=== PATIENT | female | born 1970 | race Caucasian/White ===

== ENCOUNTER 2016-05-22 13:41 | Emergency (ER) | payer OTHER ==
--- NOTE | 2016-05-22 14:18 | ED ---
Back Pain HPI - General Chief Complaint: Back Pain/Injury Stated Complaint: back pain/headache/unable to urinate Time Seen by Provider: 05/22/16 14:11 Source: patient, RN notes reviewed - History of Present Illness Initial Comments: Patient is a 45-year-old female who presents emergency room today with a chief complaint of urinary retention. She does admit that she feels that she needs to urinate but has only been able to void small amounts. She states that symptoms started just this morning. She does admit that she's been experiencing low back pain and headaches over the last several weeks. States she's follow-up the family doctor did have an MRI which did show some spots on membranes. She states it also showed degenerative disc disease. She states she 's had increased pain in her lower back. She states that last night radiating to the hips bilaterally. His feeling no radiation today. Denies any saddle anesthesia. Denies any other complaints currently at this time. Patient denies any recent fever, chills, shortness of breath, chest pain, abdominal pain, nausea or vomiting, dysuria or hematuria, constipation or diarrhea, headaches or visual changes, or any other complaints. - Related Data Home Medications Medication Instructions Recorded Confirmed Omeprazole [PriLOSEC] 20 mg PO AC-BRKFST PRN 05/19/15 08/25/15 Acetaminophen/Pamabrom [Midol 1 tab PO DAILY PRN 05/22/16 05/22/16 Caplet] Propranolol [Inderal] 40 mg PO BID 05/22/16 05/22/16 Previous Rx's Medication Instructions Recorded traMADol HCl [Ultram] 1 - 2 tab PO Q6H PRN #20 tab 05/22/16 Allergies Allergy/AdvReac Type Severity Reaction Status Date / Time Iodinated Contrast Media - Allergy Anaphylaxis Verified 05/22/16 14:48 Oral and [Iodinated Contrast Media - IV Dye] venom-honey bee Allergy Anaphylaxis Verified 05/22/16 14:48 [bee venom (honey bee)] seafood Allergy Anaphylaxis Uncoded 08/20/15 14:25 Review of Systems ROS Statement: Those systems with pertinent positive or pertinent negative responses have been documented in the HPI. ROS Other: All systems not noted in ROS Statement are negative. Past Medical History Past Medical History: Asthma, Cancer Additional Past Medical History / Comment(s): CERVICAL CANCER, KIDNEY STONES, Lesions on brain History of Any Multi-Drug Resistant Organisms: None Reported Past Surgical History: Tubal Ligation Additional Past Surgical History / Comment(s): UTERINE ABLATION, D&C, facial reconstruction, CYSTOSCOPY lithotripsy 2016 Past Anesthesia/Blood Transfusion Reactions: No Reported Reaction Past Psychological History: Anxiety, Bipolar, Depression Smoking Status: Current every day smoker Past Alcohol Use History: None Reported Additional Past Alcohol Use History / Comment(s): STARTED SMOKING AT AGE 15, SMOKES 1PPD Past Drug Use History: Marijuana - Past Family History Mother Family Medical History: Cancer General Exam - General Exam Comments Initial Comments: General: The patient is awake and alert, in no distress, and does not appear acutely ill. Eye: Pupils are equal, round and reactive to light, extra-ocular movements are intact. No nystagmus. There is normal conjunctiva bilaterally. No signs of icterus. Ears, nose, mouth and throat: There are moist mucous membranes and no oral lesions. Neck: The neck is supple, there is no tenderness or JVD. Cardiovascular: There is a regular rate and rhythm. No murmur, rub or gallop is appreciated. Respiratory: Lungs are clear to auscultation, respirations are non-labored, breath sounds are equal. No wheezes, stridor, rales, or rhonchi. Gastrointestinal: Soft, non-distended, non-tender abdomen without masses or organomegaly noted. There is no rebound or guarding present. No CVA tenderness. Bowel sounds are unremarkable. Musculoskeletal: Tenderness to the lumbar spine from L1 to L4. Increased paravertebral tenderness both on left right sides. Strength 5/5. Sensation intact. Pulses equal bilaterally 2+. Neurological: A&O x 3. CN II-XII intact, There are no obvious motor or sensory deficits. Coordination appears grossly intact. Speech is normal. Skin: Skin is warm and dry and no rashes or lesions are noted. Psychiatric: Cooperative, appropriate mood & affect, normal judgment. Course Vital Signs 05/22/16 14:03 Temperature 97.2 F L Pulse Rate 92 Respiratory 18 Rate Blood Pressure 139/87 O2 Sat by Pulse 98 Oximetry Medical Decision Making - Medical Decision Making Case discussed in detail with attending physician Dr. Chiang. Patient's x-ray reviewed shows no evidence of obstruction. Results were discussed with the patient. Patient has normal rectal tone here in the emergency room. Does admit to pain located to the lower back. Bladder scan showed 70 mL. Was discussed with patient about increasing oral fluids. Advised patient follow-up the family doctor tomorrow. discuss possibilities of constipation. Advised patient to try a laxative. Advised patient to return to emergency room if unable to urinate next 24 hours. Advised to return if any other symptoms increase or worsen or for any other concerns. Advised patient that narcotics contraindicated at this time due to possible cause of increased constipation. Disposition Clinical Impression: Acute back pain Disposition: HOME SELF-CARE Condition: Good Instructions: Acute Low Back Pain (ED) Additional Instructions: These falls family doctor tomorrow as discussed. Please use medication as prescribed. Please return to emergency room if unable to void for the next 24 hours. Please return if any other symptoms increase or worsen or for any other concerns. Prescriptions: traMADol HCl [Ultram] 1 - 2 tab PO Q6H PRN #20 tab PRN Reason: Pain Time of Disposition: 15:11
--- NOTE | 2016-05-22 14:55 | XR ---
EXAMINATION TYPE: XR KUB DATE OF EXAM: 05/22/2016 2:46 PM COMPARISON: 05/29/2015 HISTORY: Abdominal pain TECHNIQUE: 2 views FINDINGS: Bowel gas pattern is normal. There is no sign of intestinal obstruction or pneumoperitoneum . Fecal pattern is normal. There is no sign of a mass. Lung bases are clear. There are no pathologic calcifications over the kidneys. IMPRESSION: Nonacute abdomen. No change.
[2016-05-22] MEDS ORDERED: KETOROLAC 60 MG/2 ML VIAL IM STA (15:10)
[2016-05-22 15:32] VITALS: BP 134/79; PULSE 16; RESP 94; TEMP 97.9
== END 2016-05-22 15:32 | disposition home or self-care (01) ==
LOC: EC 13:41
DX: M54.5 Low back pain (principal); R33.9 Retention of urine, unspecified; Z79.899 Other long term (current) drug therapy; Z91.030 Bee allergy status; Z91.041 Radiographic dye allergy status; Z91.013 Allergy to seafood; Z87.442 Personal history of urinary calculi; F17.200 Nicotine dependence, unspecified, uncomplicated
CPT/HCPCS: 96372; 99283; 51798; 74000; J1885

== ENCOUNTER → 2017-11-24 | Outpatient (CLI) | payer OTHER ==
--- NOTE | 2017-11-24 16:11 | MR ---
EXAMINATION TYPE: MR brain wo con DATE OF EXAM: 11/24/2017 COMPARISON: 05/06/2016 HISTORY: Headaches TECHNIQUE: Multiplanar, multisequence images of the brain and brainstem is performed without IV contrast. FINDINGS: Diffusion weighted images demonstrate no evidence of a recent infarct or other diffusion ab normality. There is no extra-axial fluid collection.. Few punctate foci of T2/FLAIR hyperintensity a re seen within the subcortical and periventricular white matter. The largest measures 3 mm within the right frontal subcortical region. There are approximately 5 foci. No surrounding vasogenic edema is seen. The ventricular system and cisternal spaces are normal in size and appearance. The brain volum e is age appropriate. Midline structures demonstrate normal morphology. The craniocervical junction appears within normal limits. The dural venous sinuses appear patent. The visualized sinuses are clear and the globes are intact. IMPRESSION: Few new subcentimeter foci of white matter change predominating within the frontal lobes in a subcortical distribution. These are most typical of sequela of microangiopathy or headaches and do not appear an atypical distribution of demyelinating disease although this remains in the differen tial but much less likely.
== END | disposition home or self-care (01) ==
LOC: RADMRIMAIN 11:09
PROVIDERS: ATTEND Psychiatry & Neurology Neurology
DX: R90.82 White matter disease, unspecified (principal); G43.019 Migraine without aura, intractable, without status migrainosus
CPT/HCPCS: 70551

== ENCOUNTER → 2017-12-12 | Outpatient (CLI) | payer OTHER ==
--- NOTE | 2017-12-12 15:35 | US ---
EXAMINATION TYPE: US transvaginal DATE OF EXAM: 12/12/2017 COMPARISON: US CLINICAL HISTORY: N92.1 Metrorrhagia. Metrorrhagia, pt states on/off vaginal bleeding x 3 months, LMP : 4 years ago, history of ablation TECHNIQUE: Transvaginal (TV). Date of LMP: 4 yrs ago FINDINGS: Uterus: Anteverted measuring 7.1 x 4.5 x 5.3 cm there is mild myometrial heterogeneity and cervical nabothian cysts noted. Endometrial Stripe: Not well delineated but estimated at 5 mm. tiny 3 mm fundal calcification could r eflect prior instrumentation. Right Ovary: 3.4 x 2.2 x 2.4 cm for a volume of 9.6 mL. Follicular change is present with a 1.9 cm d ominant follicle or functional cyst. Left Ovary: 2.9 x 2.1 x 3.3 cm for volume of 10.3 mL. Follicular change is present. No evidence of adnexal abnormality or cul-de-sac free fluid. IMPRESSION: 1. Myometrial heterogeneity could reflect diffuse small fibroid change or adenomyosis. 2. Endometrial stripe not well delineated but estimated at 5 mm. 3. Normal follicular change in both ovaries. No pelvic free fluid.
== END | disposition home or self-care (01) ==
LOC: RADUSWWP 12:04
PROVIDERS: ATTEND Obstetrics & Gynecology
DX: N92.1 Excessive and frequent menstruation with irregular cycle (principal)
CPT/HCPCS: 76830

== ENCOUNTER → 2018-01-03 | Outpatient (CLI) | payer OTHER ==
--- NOTE | 2018-01-05 08:32 | MM ---
Reason for exam: screening (asymptomatic). Last mammogram was performed 1 year and 8 months ago. History: Patient had first child at age 37. Family history of breast cancer in mother, breast cancer in maternal grandmother, breast cancer in maternal aunt, and breast cancer in paternal aunt. Physical Findings: A clinical breast exam by your physician is recommended on an annual basis and results should be correlated with mammographic findings. MG Screening Mammo w CAD Bilateral CC and MLO view(s) were taken. Prior study comparison: May 06, 2016, bilateral MG screening mammo w CAD. October 29, 2008, mammogram, performed at [facility]. There are scattered fibroglandular densities. No significant changes when compared with prior studies. ASSESSMENT: Benign, BI-RAD 2 RECOMMENDATION: Routine screening mammogram of both breasts in 1 year.
== END | disposition home or self-care (01) ==
LOC: RADMAMWWP 08:57
PROVIDERS: ATTEND Family Medicine
DX: Z12.31 Encounter for screening mammogram for malignant neoplasm of breast (principal)
CPT/HCPCS: 77067

== ENCOUNTER → 2018-02-02 | Outpatient (CLI) | payer OTHER ==
--- NOTE | 2018-02-02 09:10 | CT ---
EXAMINATION TYPE: CT abdomen pelvis w con DATE OF EXAM: 02/02/2018 COMPARISON: None HISTORY: Leukocystosis and abdominal pain CT DLP: 1091.40 mGycm CONTRAST: CT scan of the abdomen and pelvis is performed with Oral Contrast and with IV Contrast, patient injec lemuel with 100 ml mL of Isovue 300. FINDINGS: LUNG BASES-: No visible nodule. No infiltrate. LIVER/GB: No calcified gallstones. There is mild hepatic steatosis. No space occupying hepatic les ion. Biliary tree is of normal caliber. PANCREAS: No inflammation. No distinct mass. SPLEEN: No splenic enlargement. No lesion seen. ADRENALS: No nodule. No thickening. KIDNEYS/BLADDER: No hydronephrosis. No nephrolithiasis. No distinct renal mass. Urinary bladder g rossly unremarkable. BOWEL: Normal appendix. Normal bowel caliber. No inflammation. GENITAL ORGANS: No gross abnormality. LYMPH NODES: No greater than 1cm abdominal or pelvic lymph nodes are appreciated. AORTA: No significant abnormality. OSSEOUS STRUCTURES: No significant abnormality is seen. OTHER: No significant additional abnormality is seen. IMPRESSION: 1. Fatty liver. Otherwise unremarkable study.
--- NOTE | 2018-02-02 12:54 | XR ---
EXAMINATION TYPE: XR chest 2V DATE OF EXAM: 02/02/2018 COMPARISON: Prior dated 02/02/2015 HISTORY: Leukocytosis, abdomen pain, cough TECHNIQUE: Frontal and lateral views of the chest are obtained. FINDINGS: There is bronchial wall thickening. There is no focal air space opacity, pleural effusion, or pneumothorax seen. The cardiac silhouette size is within normal limits. The osseous structures are intact. IMPRESSION: Correlate for bronchitis, reactive airways disease, follow-up as indicated.
== END ==
LOC: RADCTMAIN 07:19
PROVIDERS: ATTEND Internal Medicine Hematology & Oncology
DX: K76.0 Fatty (change of) liver, not elsewhere classified (principal); D72.829 Elevated white blood cell count, unspecified; D75.1 Secondary polycythemia; Z91.048 Other nonmedicinal substance allergy status
CPT/HCPCS: 71046; 74177; Q9967

== ENCOUNTER → 2019-03-11 | Outpatient (CLI) | payer OTHER ==
[2019-03-11 10:10] LABS: Basophils # (A) 0.1 k/uL (0-0.2); Basophils % (A) 1 %; Eosinophils # (A) 0.2 k/uL (0-0.7); Eosinophils % (A) 2 %; HCT 48.4 % (34.0-46.0); Lymphocytes # (A) 2.3 k/uL (1.0-4.8); Lymphocytes % (A) 25 %; MCHC 33.1 g/dL (31.0-37.0); MCV 90.6 fL (80.0-100.0); Mean Platelet Volume 7.4; Monocytes # (A) 0.4 k/uL (0-1.0); Monocytes % (A) 4 %; Neutrophils # (A) 6.2 k/uL (1.3-7.7); Neutrophils % (A) 67 %; Platelet Count 226 k/uL (150-450); RBC 5.35 m/uL (3.80-5.40); WBC 9.1 k/uL (3.8-10.6)
== END | disposition home or self-care (01) ==
LOC: LABWHC1 09:24
PROVIDERS: ATTEND Psychiatry & Neurology Neurology
DX: G43.019 Migraine without aura, intractable, without status migrainosus (principal)
CPT/HCPCS: 36415; 80164; 84450; 84460; 85025

== ENCOUNTER 2019-12-13 07:27 | Day surgery (SDC) | payer OTHER ==
[2019-12-10 13:54] VITALS: BMI 34.9
[~2019-12-13 07:27] MED LIST: LACTATED RINGERS 1,000 ML IV SCH; LIDOCAINE 1% (10MG/ML) FOR IV START INTRADERMA PRN
[2019-12-13 07:48] VITALS: TEMP 97.5
[2019-12-13] MEDS ORDERED: LACTATED RINGERS 1,000 ML IV ONE (07:48)
[2019-12-13] MEDS ORDERED: PROPOFOL 10 MG/ML 20 ML VIAL IV ONE (08:02)
[2019-12-13] MEDS ORDERED: LIDOCAINE 1% INJ 10MG/ML (20 ML MDV) ONE (08:02)
--- NOTE | 2019-12-13 08:12 | P.PCN ---
Date of Procedure: 12/13/19 Procedure(s) Performed: BRIEF HISTORY: Patient is a 49-year-old, pleasant, white female scheduled for an upper endoscopy as a part of evaluation of long-standing history of several years duration. Presently on omeprazole 20 mg twice daily and Pepcid at bedtime the family. She is scheduled for an upper endoscopy to rule out complicated reflux disease. PROCEDURE PERFORMED: Esophagogastroduodenoscopy with biopsy. PREOPERATIVE DIAGNOSIS: Long-standing history of GERD. IV sedation per anesthesia. PROCEDURE: After informed consent was obtained, the patient was brought into the endoscopy unit. IV sedation was administered by Anesthesia under continuous monitoring. Initially the Olympus GIF-140 video endoscope was inserted into the mouth. Esophagus intubated without any difficulty. It was gradually advanced into the stomach and duodenum and carefully examined. The bulb and the second part of the duodenum appeared normal. The scope at this time was withdrawn to the stomach, adequately insufflated with air, and upon careful examination, mucosa of the antrum, had diffuse erythema consistent with gastritis and biopsies were done from this area. The body, cardia and the fundus appeared normal. The scope was then withdrawn into the esophagus. The GE junction was located at 39 cm from the incisors. The esophagus appeared normal. There were no erosions or ulcerations seen , biopsies were done from the distal esophagus and the patient tolerated the procedure well. IMPRESSION: 1. Normal-appearing esophagus with no evidence of esophagitis or Diamond's esophagus. 2. Mild antral gastritis. RECOMMENDATIONS: The findings of this examination were discussed with the patient as well as a family. She was advised to follow with the biopsy results. She'll continue with omeprazole 20 mg daily and Pepcid at bedtime and follow antireflux.
[2019-12-13 08:31] VITALS: BP 112/70; PULSE 58; RESP 16
== END 2019-12-13 08:44 | disposition home or self-care (01) ==
LOC: ORWHC2ENDO 07:27
PROVIDERS: ATTEND Internal Medicine Gastroenterology
DX: K21.0 Gastro-esophageal reflux disease with esophagitis (principal); K29.50 Unspecified chronic gastritis without bleeding; K08.109 Complete loss of teeth, unspecified cause, unspecified class; I25.10 Atherosclerotic heart disease of native coronary artery without angina pectoris; J45.909 Unspecified asthma, uncomplicated; F17.200 Nicotine dependence, unspecified, uncomplicated; F31.9 Bipolar disorder, unspecified; F41.9 Anxiety disorder, unspecified; G93.9 Disorder of brain, unspecified; K58.9 Irritable bowel syndrome, unspecified; Z79.899 Other long term (current) drug therapy; Z79.82 Long term (current) use of aspirin; Z91.048 Other nonmedicinal substance allergy status; Z91.013 Allergy to seafood; Z87.442 Personal history of urinary calculi; Z85.41 Personal history of malignant neoplasm of cervix uteri; Z90.710 Acquired absence of both cervix and uterus
CPT/HCPCS: 88305; 43239; J2001; J2704

== ENCOUNTER → 2021-02-15 | Outpatient (CLI) | payer OTHER ==
[2021-02-15 11:41] VITALS: BP 103/73; PULSE 76; RESP 18; TEMP 96.8
--- NOTE | 2021-02-15 13:10 | P.PAINCN ---
History of Present Illness - Reason for Consult Consult date: 02/15/21 Lumbar back pain - Chief Complaint Lumbar back pain - History of Present Illness Mrs. Vick is a 50-year-old pleasant female came to the [facility] pain clinic for initial evaluation for her lumbar back pain. Patient has ongoing pain for many years. Lately her pain is getting worse. She had lumbar spine MRI done on 05/06/2016 showed degenerative disc disease at L4-L5, and L5-S1 l evels, , and diffuse facet arthropathy. Patient describes pain is aching, throbbing, constant type of pain. Pain is radiating not radiating to her lower extremities. Patient rated pain levels are 8 out of 10 in severity. Patient doesn't like to take any medications. Activities making pain worse. Medications, resting helping in relieving patient's pain. Patient pain some days better than others. Overall activities decreased secondary to pain. Because of the pain sometimes patient is feeling lack of sleep, interest, and energy. Denied any bowel or bladder problems at this time. Patient is not using any for walking support. Patient denies any suicidal or homicidal ideations intent or plan. Patient denies any auditory or visual hallucinations. Patient denied any red flag symptoms related to pain. Review of Systems All systems: negative Constitutional: Denies chills, Denies fever Eyes: denies blurred vision, denies pain Ears, nose, mouth and throat: Denies headache, Denies sore throat Cardiovascular: Denies chest pain, Denies shortness of breath Respiratory: Denies cough Gastrointestinal: Denies abdominal pain, Denies diarrhea, Denies nausea, Denies vomiting Genitourinary: Denies dysuria, Denies hematuria Musculoskeletal: Reports myalgias Integumentary: Denies pruritus, Denies rash Neurological: Denies numbness, Denies weakness Psychiatric: Denies anxiety, Denies depression Endocrine: Denies fatigue, Denies weight change Past Medical History Past Medical History: Asthma, Cancer, GERD/Reflux, Myocardial Infarction (CT) Additional Past Medical History / Comment(s): CERVICAL CANCER, KIDNEY STONES, Lesions on brain,. spastic bowel syndrome. neck&back pain migraines. arthritis Last Myocardial Infarction Date:: 02/2017 History of Any Multi-Drug Resistant Organisms: None Reported Past Surgical History: Heart Catheterization, Hysterectomy, Tubal Ligation, Uterine Ablation Additional Past Surgical History / Comment(s): D&C, facial reconstruction, CYSTOSCOPY lithotripsy 2016 Past Anesthesia/Blood Transfusion Reactions: No Reported Reaction Past Psychological History: Anxiety, Bipolar, Depression Smoking Status: Current every day smoker Past Alcohol Use History: None Reported Additional Past Alcohol Use History / Comment(s): STARTED SMOKING AT AGE 15, SMOKES 6 cig/d attempting to quit Past Drug Use History: Marijuana Additional Drug Use History / Comment(s): edibles - Past Family History Mother Family Medical History: Cancer Medications and Allergies Home Medications Medication Instructions Recorded Confirmed Type Albuterol Inhaler (Mhu) [Ventolin 1 - 2 puff INHALATION RT-Q6H PRN 03/06/17 01/15/21 History Hfa Inhaler] Amitriptyline HCl [Elavil] 50 mg PO HS 03/06/17 01/15/21 History Aspirin 81 mg PO DAILY #303 chew 03/08/17 01/15/21 Rx Atorvastatin [Lipitor] 80 mg PO DAILY #30 tab 03/08/17 01/15/21 Rx Metoprolol Tartrate [Lopressor] 12.5 mg PO BID #60 tab 03/08/17 01/15/21 Rx Nitroglycerin Sl Tabs [Nitrostat] 0.4 mg SUBLINGUAL Q5M PRN #25 tab 03/08/17 01/15/21 Rx Polyethylene Glycol 3350 [Miralax] 17 gm PO DAILY PRN 12/10/19 01/15/21 History Valproic Acid [Depakene] 500 mg PO BID 12/10/19 01/15/21 History amLODIPine [Norvasc] 5 mg PO DAILY 12/10/19 01/15/21 History Loratadine [Claritin] 10 mg PO DAILY 01/15/21 01/15/21 History diphenhydrAMINE [Benadryl] 25 mg PO HS 01/15/21 01/15/21 History methocarbamoL [Robaxin] 500 mg PO Q8H 02/15/21 02/15/21 History Allergies Allergy/AdvReac Type Severity Reaction Status Date / Time Iodinated Contrast Media Allergy Anaphylaxis Verified 01/15/21 13:47 [Iodinated Contrast Media - IV Dye] venom-honey bee Allergy Anaphylaxis Verified 01/15/21 13:47 [bee venom (honey bee)] seafood Allergy Anaphylaxis Uncoded 01/15/21 13:47 Physical Exam Vitals: Vital Signs Temp Pulse Resp BP Pulse Ox 02/15/21 11:37 96.8 F L 76 18 103/73 96 General: Well-developed, well-nourished, no acute distress HEENT: Normocephalic, and atraumatic Neck: Supple, no neck swelling Psychiatric: Appropriate mood, and affect HAND III CUTTER: No noticeable focal neurological deficits Musculoskeletal: Upper extremity: Normal strength, and range of motion. Sensation grossly intact Lower extremity: Normal strength, and decreased range of motion secondary to pain Lumbar spine: Paravertebral tenderness: positive Lumbar facet load test : positive Strait leg raising test: negative Sacroiliac joint tenderness: Positive Thigh thrust test: Positive SI joint compression test: Positive Fabere test: Positive Results Results: MRI of the lumbar spine done on 05/06/2016 showed degenerative disc disease, L4-L5, and L5-S1 Mild, diffuse facet arthropathy Broad-based disc protrusion at L5-S1 without definite neural compression Assessment and Plan Assessment: Lumbar spondylosis without myelopathy Degenerative disc disease at all 4 L5, and L5-S1 Broad-based disc protrusion at L5-S1 Myofascial pain syndrome Plan: #1 psychological risk tools were reviewed. Diagnoses, prognosis, and multiple treatment options including but not limited to physical therapy, interventional therapy, adjunct medication therapy, complementary alternative medicine options, narcotic medication, and surgical options were discussed with the patient. And all questions were answered to the patient's satisfaction. #2 treatment plan agreement : Patient was thoroughly discussed regarding the treatment options, alternatives, and importance of exercises as tolerated. Patient clearly understood. #3 Patient was counseled on importance of regular exercise. Including gris chi, aerobic exercises as tolerated. Which helps for chronic pain, and overall well- being. Patient also counseled regarding importance of weight control role in chronic pain, and overall other health issues. By altering diet habits, minimizing sugar intake, & processed foods helps in minimizing Inflammation. Patient counseled regarding smoking associated with chronic pain, worsening inflammation, and smoking effects on liver, and medication metabolism. And encouraged to stop smoking. #4 investigations: MAPS- reviewed , urine drug test- not done #5 diagnostic tests: None at this time #6 consultation : None # 7 interventional procedures: Bilateral lumbar L4-L5, and L5-S1 medial branch block #1 . Procedure, complications, alternatives discussed with the patient. #8 medications #1 Robaxin 100 mg by mouth every 12 to every 8 hours as needed for muscle spasms dispense 30 with no refill #2 Tylenol 500 mg by mouth every 8 hours as needed, total dose not more than 2 g per day #3 magnesium oxide 400 mg by mouth daily Medication side effects, complications, long-term consequences discussed with the patient. Patient recommended to contact the pain clinic if noticed any issues with given medications. #9 morphine milligrams equivalents dose ( MME) per day: 0 from the pain clinic. # 10 TENS unit's, and percussion massage device #11 disposition: scheduled to follow up with pain clinic in 4 weeks duration. Time with Patient: Greater than 30 PQRS Measure Charge Sheet Measure #130: Documentation of Current Meds in Medical Chart: Patient's medications documented in chart Measure #226: Tobacco Use: Screen & Cessation Intervention: Pt screened for tobacco use AND intervention given Measure #111: Pneumonia Vaccination: Pneumococcal vaccine NOT administered or previously given Measure #47: Advance Care Plan: Advance care planning discussed & documented, pt chose/unable to give Measure #412: Opioid Treatment Agreement: No documentation of signed opioid helga tment agreement Measure #408: Opioid Therapy Follow-up Evaluation: Patient had NO f/u eval minimum every 3 months during opioid therapy Measure #317: Preventitive Care & Scrn High Bld Press & F/U: Pre-hypertensive or hypertensive BP documented, pt will f/u with PCP Measure #128: Body Mass Index (BMI) Screening & Follow-up: BMI documented ABOVE normal parameters - f/u documented Measure #131: Pain Assessment & Follow-up: Pain positive & plan documented Measure #431: Unhealthy Alcohol Use Preventative Care & Scrn: Patient not identified as an unhealthy alcohol user Mode of Arrival: Ambulatory - Pain Location Lower Back Non-Pharmacological Interventions: Heat, Stretching Neck Pharmacological Interventions: PRN Medication PQRS Narrative: Smoking Status Current every day smoker Blood Pressure 103/73 Pain Intensity [Neck] 10 Pain Intensity [Lower Back] 15 Scale Used Numeric (1 - 10) Hx Alcohol Use (MH) No Home Medications: Ambulatory Orders Albuterol Inhaler (Mhu) [Ventolin Hfa Inhaler] 1 - 2 puff INHALATION RT-Q6H PRN 03/06/17 Amitriptyline HCl [Elavil] 50 mg PO HS 03/06/17 Aspirin 81 mg PO DAILY #303 chew 03/08/17 Atorvastatin [Lipitor] 80 mg PO DAILY #30 tab 03/08/17 Metoprolol Tartrate [Lopressor] 12.5 mg PO BID #60 tab 03/08/17 Nitroglycerin Sl Tabs [Nitrostat] 0.4 mg SUBLINGUAL Q5M PRN #25 tab 03/08/17 Polyethylene Glycol 3350 [Miralax] 17 gm PO DAILY PRN 12/10/19 Valproic Acid [Depakene] 500 mg PO BID 12/10/19 amLODIPine [Norvasc] 5 mg PO DAILY 12/10/19 Loratadine [Claritin] 10 mg PO DAILY 01/15/21 diphenhydrAMINE [Benadryl] 25 mg PO HS 01/15/21 methocarbamoL [Robaxin] 500 mg PO Q8H 02/15/21
== END ==
LOC: PNWHC3 11:04
DX: M47.816 Spondylosis without myelopathy or radiculopathy, lumbar region (principal); M51.36 Other intervertebral disc degeneration, lumbar region; M79.18 Myalgia, other site; M51.27 Other intervertebral disc displacement, lumbosacral region; M51.37 Other intervertebral disc degeneration, lumbosacral region; J45.909 Unspecified asthma, uncomplicated; I25.2 Old myocardial infarction; F41.9 Anxiety disorder, unspecified; F31.9 Bipolar disorder, unspecified; F17.210 Nicotine dependence, cigarettes, uncomplicated; Z79.82 Long term (current) use of aspirin; Z79.51 Long term (current) use of inhaled steroids; Z79.899 Other long term (current) drug therapy; Z91.041 Radiographic dye allergy status; Z91.030 Bee allergy status; Z91.013 Allergy to seafood
CPT/HCPCS: 99211

== ENCOUNTER → 2021-04-26 | Outpatient (CLI) | payer OTHER ==
[2021-04-26 11:14] VITALS: BP 120/78; PULSE 83; RESP 18; TEMP 97.7
--- NOTE | 2021-04-26 11:45 | P.PAINPG ---
Subjective Progress Note Date: 04/26/21 Principal diagnosis: Lumbar back pain Mrs. Vick is a 50-year-old pleasant female came to the [facility] pain clinic for follow-up. Patient has ongoing pain for many years. Her lumbar bilateral L4-L5, and L5-S1 medial branch procedure car denied secondary to insurance documentation for physical therapy . Patient tried physical therapy in the past which was not helpful. As per patient she is doing physical therapy exercises at home along with taking care of her mother which was not helping in controlling her pain. And also as per patient she is not able to go for physical therapy at this time secondary to her home situation. Patient describes pain is aching, throbbing, constant type of pain. Pain is not radiating to bilateral lower extremity. Patient rated pain levels are 7-8 out of 10 in severity. With the help of medications pain levels are 6 out of 10 in severity. Activities making pain worse. Medications, resting, heating pad, exercises to some extent helping in relieving patient's pain. Patient pain some days better than others. Overall activities decreased secondary to pain. Because of the pain sometimes patient is feeling lack of sleep, interest, and energy. Denied any side effects with the medications. Denied any bowel or bladder problems at this time. Patient is not using any walking aids at this time. Patient denies any suicidal or homicidal ideations intent or plan. Patient denies any auditory or visual hallucinations. Patient denied any red flag symptoms related to pain. Objective - Vital Signs Vital signs: Vital Signs Temp 97.7 F 04/26/21 10:59 Pulse 83 04/26/21 10:59 Resp 18 04/26/21 10:59 BP 120/78 04/26/21 10:59 Pulse Ox - Exam General: Well-developed, well-nourished, no acute distress HEENT: Normocephalic, and atraumatic Neck: Supple, no neck swelling Psychiatric: Appropriate mood, and affect LABEL STAMPER: No focal neurological deficits Musculoskeletal: Upper extremity: Normal strength, and range of motion. Sensation grossly intact Lower extremity: Normal strength, and decreased range of motion secondary to pain Lumbar spine: Paravertebral tenderness: positive Lumbar facet load test : positive SLR test: Negative Sacroiliac joint tenderness: Positive Thigh thrust test: Positive SI joint compression test: Positive Fabere test: Positive - Constitutional Constitutional Comment(s): 13 point review of symptoms negative except as mentioned in the history of present illness Assessment and Plan Assessment: Lumbar spondylosis without myelopathy degenerative disc disease at L4-L5, L5-S1 level Broad-based disc protrusion at L5-S1 Myofascial pain syndrome Sacroiliac joint dysfunction Plan: #1 Diagnoses, prognosis, and multiple treatment options including but not limited to physical therapy, interventional therapy, adjunct medication therapy, narcotic medication, and surgical options were discussed with the patient. And all questions were answered to the patient's satisfaction. #2 treatment plan agreement : Patient was thoroughly discussed regarding the treatment options, alternatives, and importance of exercises as tolerated. Patient clearly understood. #3 Patient was counseled on importance of regular exercise. Including gris chi, aerobic exercises as tolerated. Which helps for chronic pain, and overall well- being. Patient also counseled regarding importance of weight control rolling chronic pain, and overall other health issues. By altering diet habits, minimizing sugar intake, and processed foods helps in minimizing Inflammation. Also discussed with the patient regarding intermittent fasting. #4 investigations: MAPS- reviewed #5 diagnostic tests: None #6 consultation : Patient unable to attend physical therapy at this time secondary to her home situation. Patient is actively doing physical therapy exercises at home as tolerated. # 7 interventional procedures: Bilateral lumbar L4-L5, and L5-S1 medial branch block #1 . Procedure, complications, alternatives discussed with the patient. #8 medications #1 Robaxin dose increased from 500 mg to 750 mg by mouth every 12 to every 8 hours when necessary for muscle spasm dispense 90 with no refill #2 Tylenol 500 mg by mouth every 8 hours as needed total dose not more than 2 g per day #3 Naprosyn 500 mg by mouth every 12 hours from her primary care physician Medication side effects, complications, long-term consequences discussed with the patient. Patient recommended to contact the pain clinic if noticed any issues with given medications. #9 morphine milligrams equivalents dose ( MME) per day: 0 from the pain clinic # 10 TENS unit's, and percussion massage device #11 disposition: scheduled to follow up with pain clinic in 4 weeks duration. Time with Patient: Less than 30 PQRS Measure Charge Sheet Measure #130: Documentation of Current Meds in Medical Chart: Patient's medications documented in chart Measure #226: Tobacco Use: Screen & Cessation Intervention: Pt not a tobacco user Measure #111: Pneumonia Vaccination: Pneumococcal vaccine NOT administered or previously given Measure #47: Advance Care Plan: Advance care planning discussed & documented, pt chose/unable to give Measure #412: Opioid Treatment Agreement: No documentation of signed opioid treatment agreement Measure #408: Opioid Therapy Follow-up Evaluation: Patient had NO f/u eval minimum every 3 months during opioid therapy Measure #317: Preventitive Care & Scrn High Bld Press & F/U: Pre-hypertensive or hypertensive BP documented, pt will f/u with PCP Measure #128: Body Mass Index (BMI) Screening & Follow-up: BMI documented ABOVE normal parameters - f/u documented Measure #131: Pain Assessment & Follow-up: Pain positive & plan documented Measure #431: Unhealthy Alcohol Use Preventative Care & Scrn: Patient not identified as an unhealthy alcohol user Mode of Arrival: Ambulatory - Pain Location Lower Back Non-Pharmacological Interventions: Inactivity, Position/Reposition, Relaxation Technique PQRS Narrative: Smoking Status Current every day smoker Blood Pressure 120/78 Pain Intensity [Lower Back] 9 Scale Used Numeric (1 - 10) Hx Alcohol Use (MH) No Home Medications: Ambulatory Orders Albuterol Inhaler (Mhu) [Ventolin Hfa Inhaler] 1 - 2 puff INHALATION RT-Q6H PRN 03/06/17 Aspirin 81 mg PO DAILY #303 chew 03/08/17 Atorvastatin [Lipitor] 80 mg PO DAILY #30 tab 03/08/17 Nitroglycerin Sl Tabs [Nitrostat] 0.4 mg SUBLINGUAL Q5M PRN #25 tab 03/08/17 Polyethylene Glycol 3350 [Miralax] 17 gm PO DAILY 12/10/19 Valproic Acid [Depakene] 500 mg PO BID 12/10/19 amLODIPine [Norvasc] 5 mg PO DAILY 12/10/19 Loratadine [Claritin] 10 mg PO DAILY 01/15/21 diphenhydrAMINE [Benadryl] 25 mg PO HS 01/15/21 Naproxen [Naprosyn] 500 mg PO Q12HR 03/18/21 Amitriptyline HCl 50 mg PO HS 04/21/21 Metoprolol Tartrate [Lopressor] 12.5 mg PO BID 04/21/21 Controlled Substance Measures - Controlled Substance Measures Is patient prescribed a controlled substance at discharge?: No
== END ==
LOC: PNWHC3 10:19
DX: M47.816 Spondylosis without myelopathy or radiculopathy, lumbar region (principal); M51.37 Other intervertebral disc degeneration, lumbosacral region; M51.27 Other intervertebral disc displacement, lumbosacral region; M79.18 Myalgia, other site; M53.3 Sacrococcygeal disorders, not elsewhere classified; F17.200 Nicotine dependence, unspecified, uncomplicated; Z91.041 Radiographic dye allergy status; Z91.030 Bee allergy status; Z91.013 Allergy to seafood
CPT/HCPCS: 99211

== ENCOUNTER 2021-06-04 09:38 | Day surgery (SDC) | payer OTHER ==
[2021-05-31 14:46] VITALS: BMI 35.2
[2021-06-04] MEDS ORDERED: LACTATED RINGERS 1,000 ML IV SCH (09:56)
[2021-06-04 10:06] VITALS: RESP 16; TEMP 97
[2021-06-04] MEDS ORDERED: ROPIVACAINE 5MG/ML 20ML VIAL ONE (10:54)
[2021-06-04] MEDS ORDERED: fentaNYL (PF) 50 MCG/ML 2 ML AMP ONE (10:54)
[2021-06-04] MEDS ORDERED: methylPREDNISolone ACETATE 40 MG/ML 1 ML VIAL ONE (10:54)
[2021-06-04] MEDS ORDERED: MIDAZOLAM 2 MG/2 ML VIAL ONE (10:54)
--- NOTE | 2021-06-04 11:17 | P.PCN ---
Date of Procedure: 06/04/21 Procedure(s) Performed: PREOPERATIVE DIAGNOSIS : 1- Lumbar spondylosis with Facet Arthropathy without myelopathy . 2- Lumber degenerative disc disease POSTOPERATIVE DIAGNOSIS: 1- Lumbar spondylosis with Facet Arthropathy without myelopathy . 2- Lumber degenerative disc disease PROCEDURE: Diagnostic bilateral L3 , L4 , and L5 medial branch block under fluoroscopy guidance(fluoroscopy images available in the radiology Department ) ( To target the facet joint between Bilateral L4-5 , and L5-S1 )#1st ANESTHESIA:, Monitored anesthesia care as per anesthesia department. EBL: Minimal COMPLICATION: None PROCEDURE INDICATION: Chronic low back pain secondary to Facet arthropathy unresponsive to conservative treatment. PROCEDURE DESCRIPTION: the patient was seen and identified in the preop holding area , risks and benefits and possible complications of the procedure and alternative were discussed with the patient, and the patient agreed to proceed with the procedure and signed the consent and vital signs monitored during the procedure and fluoroscopy was used to maximize the benefit and accuracy of the needle placement, and sedation was given to decrease patient anxiety, patient was taken to the procedure room and placed in prone position vital signs monitored in the back prepped with chlorhexidine X3 then under strict sterile technique using a right oblique fluoroscopy ,the junction of the transverse process and the superior articulating process of the right L3 , L4 , and L5 vertebra which corresponding to the fluoroscopy image of the eye of the Sony dog on the block side for the medial branches and subsequently , after local infiltration of skin and subcu tissuies with Ropivacaine 0.5 % , one mL at each level ,then 22-gauge Quincke-type needles , 3 needle was used , each one of them placed at the junction of the base of the transverse process and the superior articular process at the appropriate level, and the needle was advanced until the periosteum contacted, needle placement confirmed with AP oblique and lateral view and after appropriate needle placement confirmed, and after negative aspiration for heme and CSF and there was no paresthesia 1-1/2 mL of Ropivacaine 0.5% mixed with 20 mg Depo-Medrol , then half mL injected at each level after negative aspiration the needle subsequently removed and the same procedure repeated for the left side at left side at L3 , L4 and L5 levels. At the end of the procedure and the needles removed and a bandage applied after the skin was cleaned the cleaning solution patient taken to recovery room in stable condition and monitors in the recovery room for 20-30 minutes and discharged home in stable condition after discharge criteria met and patient will follow up with the pain clinic in 2-4 weeks
[2021-06-04] MEDS ORDERED: IV FLUID CONTINUATION 1,000 ML IV ONE (11:20)
[2021-06-04 11:41] VITALS: BP 101/69; PULSE 86
--- NOTE | 2021-06-04 12:25 | FL ---
Fluoroscopy HISTORY: Pain 10 seconds fluoroscopy time supplied to the referring clinician. 4 intraoperative C-arm images docum ent the procedure. See dictated report from anesthesia.
== END 2021-06-04 12:45 | disposition home or self-care (01) ==
LOC: ORPAIN 09:38
PROVIDERS: ATTEND Specialist
DX: M54.50 Low back pain, unspecified (principal); G89.29 Other chronic pain; M47.816 Spondylosis without myelopathy or radiculopathy, lumbar region; M51.37 Other intervertebral disc degeneration, lumbosacral region; I25.10 Atherosclerotic heart disease of native coronary artery without angina pectoris; I10 Essential (primary) hypertension; E78.5 Hyperlipidemia, unspecified; K21.9 Gastro-esophageal reflux disease without esophagitis; I25.2 Old myocardial infarction; J45.909 Unspecified asthma, uncomplicated; F41.9 Anxiety disorder, unspecified; F31.9 Bipolar disorder, unspecified; G43.909 Migraine, unspecified, not intractable, without status migrainosus; F17.200 Nicotine dependence, unspecified, uncomplicated; R00.0 Tachycardia, unspecified; Z87.442 Personal history of urinary calculi; Z98.51 Tubal ligation status; Z97.2 Presence of dental prosthetic device (complete) (partial); Z79.899 Other long term (current) drug therapy; Z91.030 Bee allergy status; Z91.041 Radiographic dye allergy status; Z91.013 Allergy to seafood
CPT/HCPCS: 64493; 64494; J2250; J1030; J3010; J2795

== ENCOUNTER → 2021-07-01 | Outpatient (CLI) | payer OTHER ==
[2021-07-01 09:24] VITALS: BP 98/55; PULSE 78; RESP 18; TEMP 97.6
--- NOTE | 2021-07-01 09:37 | P.PN ---
Subjective Progress Note Date: 07/01/21 Principal diagnosis: A 51 yr old female with a history of severe and chronic low back pain secondary to lumbar degenerative disc diseases and lumbar spondylosis with facet arthropathy presents today for evaluation status post bilateral facet blocks of the medial branches at L4-L5 and L5-S1 #1. Patient states Quirino's 80% pain relief status post procedure 1 day, but the pain started to return thereafter. Pain level is currently at 8 out of 10 in intensity, dull and achy in the lower aspects of the lumbar spine with accompanying muscle tightness and shooting pain down the lower extremities to her feet. Pain is provoked by walking for 15 minutes, standing for 20 minutes or sitting for 30 minutes or more. Pain is alleviated with medications, icy hot topical, injections, heat, and they stretching regimen, repositioning and rest. Interventional pain procedures completed include bilateral facet blocks of the medial branches of L4-L5 and L5-S1 Patient is currently on Robaxin and Aleve OTC Patient denies any side effects of the medication(s), denies excessive d rowsiness or sleepiness, denies suicidal ideation and reports that the current pain medication is helping to control the pain and improve activities of daily living. Patient denies any motor or sensory deficits. Patient denies any fever or night sweats, denies any change in the bowel movements or urination. Physical Examination: -Constitutional: Cooperative. Not in acute distress . -HEENT: Neck is supple. No lymphadenopathy. No thyromegaly. Normal thyroid size. Eyes: No ptosis , no icterus, no photophobia. ENT: No auditory deficits. Normal oropharynx. No Thrush. - Respiratory: Chest clear to auscultations bilaterally. No wheezing. No rhonchi. - Cardiovascular: Regular rate and rhythm. S1 / S2 , no S3 , no S4. - Gastrointestinal: Abdomen soft no tenderness. Bowel sounds positive in all four quadrants. No organomegaly. - Genitourinary: Deferred. - Neurologic: Cranial nerve II to XII intact. No focal neurological deficits. - Psychatric: Alert & oriented x 3. Matching mood & appropriate affect. Judgment and insight intact. - Lymphatic: No Lymphadenopathy. - Musculoskeletal: Cervical spine: Muscle bulk/ tone/ strength in the bilateral upper extremities normal. Facet loading test cervical area positive. Lumbar spine: Motor bulk/ tone/ strength lower extremities , thigh and legs : 5/5 Deep tendon reflexes : Normal Knee Jerk. Normal Ankle Jerk . Mild Vertebral body tenderness to palpation over L4 Lumbar Facet Loading Test positive over the bilateral L4-L5 and L5-S1 with accompanying paraspinal spasms Straight Leg Raise: positive at 30 degrees right side/ left side Gaenslen's Test positive Sacral spine : Severe tenderness over the Sacroiliac joint: right side / left side Range of motion: Flexion of the lumbar spine <60 degrees Range of motion: Extension of the lumbar spine <20 degrees Gaenslen's Test positive Yoel test: positive right side / left side Assessment and plan: Chronic low back pain secondary to lumbar degenerative disc disease , lumbar spondylosis with facet arthropathy without myelopathy Recommendation of bilateral facet blocks of the medial branches of L4-L5 and L5-S1 #2 This patient exhibits a good response to procedure she may progress to an RFA if necessary Risks, benefits of procedure discussed and patient verbalized understanding Diagnoses, prognosis and treatment options including but not limited to physical therapy, surgical interventions, interventional therapies and medication management including narcotics and adjuvant medication were discussed. All patient questions answered MAPS reviewed and it was appropriate. Prescription refill for Robaxin when necessary I have spent 31 minutes on patient care today. Dr Montgomery was available by phone for the evaluation of this patient. The time was used to review the medical records including relevant urine studies and Prescription history (MAPs), review of the available imaging, evaluation and examination of the patient, coordination of care with the medical staff and if applicable referring physicians, as well as creation of the medical record Objective - Vital Signs Vital signs: Vital Signs Temp 97.6 F 07/01/21 09:05 Pulse 78 07/01/21 09:05 Resp 18 07/01/21 09:05 BP 98/55 07/01/21 09:05 Pulse Ox 96 07/01/21 09:05 Intake & Output 06/30/21 07/01/21 07/01/21 18:59 06:59 18:59 Weight 86.183 kg PQRS Measure Charge Sheet Mode of Arrival: Ambulatory - Pain Location Lower Back Non-Pharmacological Interventions: Heat, Home Exercise, Position/Reposition, Stretching PQRS Narrative: Smoking Status Current every day smoker Blood Pressure 98/55 Pain Intensity [Lower Back] 10 Scale Used Numeric (1 - 10) Hx Alcohol Use (MH) No Home Medications: Ambulatory Orders Albuterol Inhaler (Mhu) [Ventolin Hfa Inhaler] 1 - 2 puff INHALATION RT-Q6H PRN 03/06/17 Atorvastatin [Lipitor] 80 mg PO DAILY #30 tab 03/08/17 Nitroglycerin Sl Tabs [Nitrostat] 0.4 mg SUBLINGUAL Q5M PRN #25 tab 03/08/17 Valproic Acid [Depakene] 500 mg PO BID 12/10/19 amLODIPine [Norvasc] 5 mg PO DAILY 12/10/19 diphenhydrAMINE [Benadryl] 25 mg PO HS 01/15/21 Amitriptyline HCl 50 mg PO HS 04/21/21 Metoprolol Tartrate [Lopressor] 12.5 mg PO BID 04/21/21 Naproxen Sodium [Aleve] 220 mg PO BID 06/30/21 methocarbamoL [Robaxin] 500 mg PO DIRECTED PRN 06/30/21
== END ==
LOC: PNWHC3 08:57
PROVIDERS: ATTEND Physician Assistant Medical
DX: G89.29 Other chronic pain (principal); M51.36 Other intervertebral disc degeneration, lumbar region; M47.816 Spondylosis without myelopathy or radiculopathy, lumbar region; F17.200 Nicotine dependence, unspecified, uncomplicated; Z91.041 Radiographic dye allergy status; Z91.030 Bee allergy status; Z91.013 Allergy to seafood
CPT/HCPCS: 99211

== ENCOUNTER → 2021-09-23 | Outpatient (CLI) | payer OTHER ==
--- NOTE | 2021-09-23 10:46 | P.PN ---
Subjective Progress Note Date: 09/23/21 Principal diagnosis: A 51 yr old male with at side with a history of severe and chronic low back pain secondary to lumbar degenerative disc diseases and lumbar spondylosis with facet arthropathy presents today for evaluation status post facet blocks medial branches L4-L5, L5-S1 #1. He states he expressed 100% pain relief for 3 days status post procedure. Pain level is currently at 5 out of 10 in intensity, localized to the lower aspect of the lumbar spine where it meets the tailbone, sharp in character with radiation of pain down the lower extremities to the feet. Pain escalates as high as 10 out of 10 in intensity with bending, twisting, stooping or lifting. Pain is alleviated with medications, topicals, physical therapy integrated with massage in the past which provided no relief, chiropractic treatments in the past which provided no relief, daily home str etching regimen as tolerated and rest. Interventional pain procedures completed include several blocks of the medial branches L3-L5 #1 Patient is currently on Tylenol OTC Patient denies any side effects of the medication(s), denies excessive drowsiness or sleepiness, denies suicidal ideation and reports that the current pain medication is helping to control the pain and improve activities of daily living. Patient denies any motor or sensory deficits. Patient denies any fever or night sweats, denies any change in the bowel movements or urination. Physical Examination: -Constitutional: Cooperative. Not in acute distress . -HEENT: Neck is supple. No lymphadenopathy. No thyromegaly. Normal thyroid size. Eyes: No ptosis , no icterus, no photophobia. ENT: No auditory deficits. Normal oropharynx. No Thrush. - Respiratory: Chest clear to auscultations bilaterally. No wheezing. No rhonchi. - Cardiovascular: Regular rate and rhythm. S1 / S2 , no S3 , no S4. - Gastrointestinal: Abdomen soft no tenderness. Bowel sounds positive in all four quadrants. No organomegaly. - Genitourinary: Deferred. - Neurologic: Cranial nerve II to XII intact. No focal neurological deficits. - Psychatric: Alert & oriented x 3. Matching mood & appropriate affect. Judgment and insight intact. - Lymphatic: No Lymphadenopathy. - Musculoskeletal: Cervical spine: Muscle bulk/ tone/ strength in the bilateral upper extremities normal. Facet loading test cervical area positive. Lumbar spine: Motor bulk/ tone/ strength lower extremities , thigh and legs : 5/5 Deep tendon reflexes : Normal Knee Jerk. Normal Ankle Jerk . Vertebral body tenderness to palpation over Lumbar Facet Loading Test positive over bilateral L3-L5 Straight Leg Raise: positive at 30 degrees right side/ left side Gaenslen's Test positive Sacral spine : Severe tenderness over the Sacroiliac joint: right side / left side Range of motion: Flexion of the lumbar spine <60 degrees Range of motion: Extension of the lumbar spine <20 degrees Gaenslen's Test positive Yoel test: positive right side / left side Assessment and plan: Chronic low back pain secondary to lumbar degenerative disc disease , lumbar spondylosis with facet arthropathy without myelopathy Recommendation of facet blocks of the medial branches L4-L5, L5-S1 #2. Risks, benefits of procedure discussed and patient verbalized understanding. Denies anticoagulant use or medical history of diabetes. All patient questions answered I have spent 31 minutes on patient care today. Dr Montgomery was available by phone for the evaluation of this patient. The time was used to review the medical records including relevant urine studies and Prescription history (MAPs), review of the available imaging, evaluation and examination of the patient, coordination of care with the medical staff and if applicable referring physicians, as well as creation of the medical record PQRS Measure Charge Sheet PQRS Narrative: Smoking Status Current every day smoker Hx Alcohol Use (MH) No Home Medications: Ambulatory Orders Albuterol Inhaler (Mhu) [Ventolin Hfa Inhaler] 1 - 2 puff INHALATION RT-Q6H PRN 03/06/17 Atorvastatin [Lipitor] 80 mg PO DAILY #30 tab 03/08/17 Nitroglycerin Sl Tabs [Nitrostat] 0.4 mg SUBLINGUAL Q5M PRN #25 tab 03/08/17 Valproic Acid [Depakene] 500 mg PO BID 12/10/19 amLODIPine [Norvasc] 5 mg PO DAILY 12/10/19 diphenhydrAMINE [Benadryl] 25 mg PO HS 01/15/21 Amitriptyline HCl 50 mg PO HS 04/21/21 Metoprolol Tartrate [Lopressor] 12.5 mg PO BID 04/21/21 Naproxen Sodium [Aleve] 220 mg PO BID 06/30/21 methocarbamoL [Robaxin] 750 mg PO BID PRN 30 Days #60 tab 08/04/21
[2021-09-23 11:01] VITALS: BP 106/76; PULSE 86; RESP 16; TEMP 98
--- NOTE | 2021-09-23 11:01 | P.PN ---
Subjective Progress Note Date: 09/23/21 Principal diagnosis: A 51 yr old female with a history of severe and chronic low back pain secondary to lumbar degenerative disc diseases and lumbar spondylosis with facet arthropathy presents today for evaluation status post facet blocks of the medial branches L4-L5, L5-S1 #2. She admits she experienced 75% pain relief for 4 hours status post procedure. Pain level is currently at 8 out of 10 in intensity, deep stabbing pain in the lower aspects of the lumbar spine left and right of midline that exacerbates as high as 10 out of 10 in intensity with bending, or standing/walking for periods of 15 minutes or more. Pain is alleviated with medications, topicals which provided no relief, injections, heat which provided no relief, pulsating hot tub, repositioning which provided limited relief, massage from her adolescence on which worsened pain, Epsom salt baths and rest. Interventional pain procedures completed include FB/MB BL L3-L5 #2 Patient is currently on Aleve OTC, anti-spasmotic which she can not recall the name Patient denies any side effects of the medication(s), denies excessive drowsiness or sleepiness, denies suicidal ideation and reports that the current pain medication is helping to control the pain and improve activities of daily living. Patient denies any motor or sensory deficits. Patient denies any fever or night sweats, denies any change in the bowel movements or urination. Physical Examination: -Constitutional: Cooperative. Not in acute distress . -HEENT: Neck is supple. No lymphadenopathy. No thyromegaly. Normal thyroid size. Eyes: No ptosis , no icterus, no photophobia. ENT: No auditory deficits. Normal oropharynx. No Thrush. - Respiratory: Chest clear to auscultations bilaterally. No wheezing. No rhonchi. - Cardiovascular: Regular rate and rhythm. S1 / S2 , no S3 , no S4. - Gastrointestinal: Abdomen soft no tenderness. Bowel sounds positive in all four quadrants. No organomegaly. - Genitourinary: Deferred. - Neurologic: Cranial nerve II to XII intact. No focal neurological deficits. - Psychatric: Alert & oriented x 3. Matching mood & appropriate affect. Judgment and insight intact. - Lymphatic: No Lymphadenopathy. - Musculoskeletal: Cervical spine: Muscle bulk/ tone/ strength in the bilateral upper extremities normal. Facet loading test cervical area positive. Lumbar spine: Motor bulk/ tone/ strength lower extremities , thigh and legs : 5/5 Deep tendon reflexes : Normal Knee Jerk. Normal Ankle Jerk . Vertebral body tenderness to palpation over Lumbar Facet Loading Test positive over BL L3-L5 with jump reflex Straight Leg Raise: positive at 30 degrees right side/ left side Gaenslen's Test positive Sacral spine : Severe tenderness over the Sacroiliac joint: right side / left side Range of motion: Flexion of the lumbar spine <60 degrees Range of motion: Extension of the lumbar spine <20 degrees Gaenslen's Test positive Yoel test: positive right side / left side Assessment and plan: Chronic low back pain secondary to lumbar degenerative disc disease , lumbar spondylosis with facet arthropathy without myelopathy Recommendation of bilateral RFA L4-L5, L5-S1. Risks, benefits of procedure discussed and patient verbalized understanding. Coagulant use or medical history of diabetes. All patient questions answered MAPS reviewed and it was appropriate. Prescription for naproxen 375mg BIDWM prn pain #60 w 1 refill I have spent 31 minutes on patient care today. Dr Montgomery was available by phone for the evaluation of this patient. The time was used to review the medical records including relevant urine studies and Prescription history (MAPs), review of the available imaging, evaluation and examination of the patient, coordination of care with the medical staff and if applicable referring physicians, as well as creation of the medical record PQRS Measure Charge Sheet Mode of Arrival: Ambulatory PQRS Narrative: Smoking Status Current every day smoker Blood Pressure 106/76 Pain Intensity [Lower Back] 8 Scale Used Numeric (1 - 10) Hx Alcohol Use (MH) No Home Medications: Ambulatory Orders Albuterol Inhaler (Mhu) [Ventolin Hfa Inhaler] 1 - 2 puff INHALATION RT-Q6H PRN 03/06/17 Atorvastatin [Lipitor] 80 mg PO DAILY #30 tab 03/08/17 Nitroglycerin Sl Tabs [Nitrostat] 0.4 mg SUBLINGUAL Q5M PRN #25 tab 03/08/17 Valproic Acid [Depakene] 500 mg PO BID 12/10/19 amLODIPine [Norvasc] 5 mg PO DAILY 12/10/19 diphenhydrAMINE [Benadryl] 25 mg PO HS 01/15/21 Amitriptyline HCl 50 mg PO HS 04/21/21 Metoprolol Tartrate [Lopressor] 12.5 mg PO BID 04/21/21 methocarbamoL [Robaxin] 750 mg PO BID PRN 30 Days #60 tab 08/04/21 Naproxen [EC-Naproxen] 375 mg PO Q12HR 30 Days #60 tab 09/23/21
== END ==
LOC: PNWHC3 09:51
PROVIDERS: ATTEND Specialist
DX: M51.36 Other intervertebral disc degeneration, lumbar region (principal); M47.816 Spondylosis without myelopathy or radiculopathy, lumbar region; G89.29 Other chronic pain; F17.200 Nicotine dependence, unspecified, uncomplicated; E11.9 Type 2 diabetes mellitus without complications; Z91.041 Radiographic dye allergy status; Z91.030 Bee allergy status; Z91.013 Allergy to seafood
CPT/HCPCS: 99211

== ENCOUNTER 2021-11-02 06:29 | Day surgery (SDC) | payer OTHER ==
[2021-11-01 11:21] VITALS: BMI 37.0
[2021-11-02 06:49] VITALS: TEMP 96.9
[2021-11-02] MEDS ORDERED: fentaNYL (PF) 50 MCG/ML 2 ML AMP ONE (07:17)
[2021-11-02] MEDS ORDERED: ROPIVACAINE 5MG/ML 20ML VIAL ONE (07:17)
[2021-11-02] MEDS ORDERED: methylPREDNISolone ACETATE 40 MG/ML 1 ML VIAL ONE (07:17)
[2021-11-02] MEDS ORDERED: MIDAZOLAM 2 MG/2 ML VIAL ONE (07:17)
--- NOTE | 2021-11-02 08:10 | P.PCN ---
Date of Procedure: 11/02/21 Procedure(s) Performed: PREOPERATIVE DIAGNOSIS: 1-Lumbar Spondylosis with Facet Arthropathy without myelopathy. 2- Lumber degenerative disc disease. POSTOPERATIVE DIAGNOSIS: 1- Lumbar Spondylosis with Facet Arthropathy without myelopathy. 2- Lumber degenerative disc disease. PROCEDURES : Bilateral Radiofrequency thermocoagulation, L3 , L4 , and L5 medial branch, with fluoroscopic guidance (fluoroscopy images available in the radiology department) ( to denervate the facet joint at bilateral L4-5 ,and L5-S1 levels ). ANESTHESIA: Moderate sedation with intravenous versed 3 mg and fentaneyl 100 mcg, and local infiltration with Ropivacaine 0.5 % . EBL: Minimal PROCEDURE INDICATION: The patient with low back pain secondary to lumbar facet arthropathy who had more than 80% relief of her pain with previous diagnostic lumbar medial branch block with bupivacaine. PROCEDURE DESCRIPTION / TECHNIQUE: The patient was seen and identified in the preoperative area. Risks, benefits, complications, including but not limited to risk of infection ,bleeding , allergic reactions to the medications and no complete pain releife , and alternatives were discussed with the patient, the patient agreed to proceed with the procedure and signed the consent. IV was started. Vital signs remained stable throughout the procedure. Patient was taken to the OR and time out was completed. The patient was placed in the prone position on the procedure table. The lumber area was prepped and draped in the usual sterile fashion. . Vital signs were closely monitored during the procedure .IV sedation was used during the procedure to decrease patients anxiety. Using AP and then oblique fluoroscopy, the ``eye of the Sony dog corresponding to the connection between the superior and transverse articular processes of right L3, L4, and L5 were identified, marked, and localized with 1% lidocaine. Subsequently, a [id number] radiofrequency cannula with a 10- mm active tip was advanced guided by fluoroscopy to each of the``eyes of the Sony dog at right L3, L4, and L5. Each site then underwent sensory testing at 50 Hz and 0 to 1 volt and motor testing at 2.5 Hz and 0 to 3 volt with local stimulation, but no radicular symptoms down the legs. Thereafter each sites underwent radiofrequency thermocoagulation at 80 degrees celsius for 90 seconds after injecting 0.5 ml of PF Ropivacaine 1ml, then after the thermocoagulation done , 1 ml of the block solution containing Depo-Medrol 20 mg and 3 ml of Ropivacaine 0.5% was injected at the right L3 , L4 , and L5 , levels after negative aspiration of CSF and blood and with no paresthesias. Cannulas were retracted while injecting lidocaine 1% until the needle is out. The same procedure was repeated at the level of Left L3, L4, and L5 levels. At the end of the procedure, the skin was cleansed and bandages were applied. COMPLICATIONS: No acute complications. DISPOSITION / PLANS: The patient was placed in a supine position and transferred to the recovery area in a stable condition for observation and was discharged from the recovery room after meeting discharge criteria. Home discharge instructions given to the patient by the staff. The patient was reexamined prior to discharge. The patient will schedule a follow up in the clinic in 2-4 weeks.
[2021-11-02] MEDS ORDERED: IV FLUID CONTINUATION 750 ML IV ONE (08:14)
[2021-11-02 08:20] VITALS: RESP 20
[2021-11-02 08:40] VITALS: BP 101/69; PULSE 78
--- NOTE | 2021-11-02 10:00 | FL ---
Fluoroscopy HISTORY: Pain 42 seconds fluoroscopy time supplied to the referring clinician. 9 intraoperative C-arm images docum ent the procedure. See dictated report from anesthesia.
== END 2021-11-02 08:44 | disposition home or self-care (01) ==
LOC: ORPAIN 06:29
PROVIDERS: ATTEND Specialist
DX: M47.816 Spondylosis without myelopathy or radiculopathy, lumbar region (principal); M51.36 Other intervertebral disc degeneration, lumbar region
CPT/HCPCS: 64635; 64636; J2250; J1030; J3010; J2795

== ENCOUNTER → 2021-11-22 | Outpatient (CLI) | payer OTHER ==
--- NOTE | 2021-11-22 09:39 | P.PAINPG ---
PQRS Measure Charge Sheet Comment: A 51 yr old female with a history of severe and chronic low back pain secondary to lumbar degenerative disc diseases and lumbar spondylosis with facet arthropathy presents today for evaluation status post BL RFA L3-L5. Pt states she experienced 90% pain relief s/p procedure. Pain level is currently at 8/10 in intensity, localized in the base of the head, dull in character with radiation of pain up the scalp BL. Pain is provoked by cervical rotation and hyperextension. Pain is alleviated with medications, topicals, injections of the lumbar spine, ice, heat, massage at home, use of a pulsating shower, stretching and rest. Interventional pain procedures completed include BL RFA L3-L5 Patient is currently on Aleve OTC Patient denies any side effects of the medication(s), denies excessive drowsiness or sleepiness, denies suicidal ideation and reports that the current pain medication is helping to control the pain and improve activities of daily living. Patient denies any motor or sensory deficits. Patient denies any fever or night sweats, denies any change in the bowel movements or urination. Physical Examination: -Constitutional: Cooperative. Not in acute distress . - Neurologic: Cranial nerve II to XII intact. No focal neurological deficits. - Psychatric: Alert & oriented x 3. Matching mood & appropriate affect. Judgment and insight intact. - Musculoskeletal: Cervical spine: +BL G.O.N. TTP Muscle bulk/ tone/ strength in the bilateral upper extremities normal Vertebral body tenderness to palpation over Spurling test positive Distraction test positive Facet loading test positive Thoracic spine Muscle bulk / tone/ strength in the bilateral paraspinal muscles normal Vertebral body tender to palpation over Facet loading test positive Lumbar spine: Motor bulk/ tone/ strength lower extremities , thigh and legs : 5/5 Deep tendon reflexes : Normal Knee Jerk. Normal Ankle Jerk . Vertebral body tenderness to palpation over Lumbar Facet Loading Test positive Straight Leg Raise: positive at 30 degrees right side/ left side Gaenslen's Test positive Sacral spine : Severe tenderness over the Sacroiliac joint: right side / left side Range of motion: Flexion of the lumbar spine <60 degrees Range of motion: Extension of the lumbar spine <20 degrees Gaenslen's Test positive Rene's Test positive Yoel test: positive right side / left side Thigh Thrust Test Sacral Thrust Test Assessment and plan: Occipital Neuralgia, Lumbar DDD Recommendation of BL G.O.N. injections. May need a series of injections, up until RFA for optimal pain relief. Risks, benefits of procedure discussed and pt verbalized understanding. Denies medical history of diabetes. Admits to ASA use. Protocol for discontinuation/ continuation of medications rizwan procedure discussed. All patient questions answered MAPS reviewed and it was appropriate. Prescription for cervical MRI without contrast re: M 50.30 I have spent less than 30 minutes on patient care today. Dr Montgomery was available by phone for the evaluation of this patient. The time was used to review the medical records including relevant urine studies and Prescription history (MAPs), review of the available imaging, evaluation and examination of the patient, coordination of care with the medical staff and if applicable ref erring physicians, as well as creation of the medical record PQRS Narrative: Smoking Status Current every day smoker Hx Alcohol Use (MH) No Home Medications: Ambulatory Orders Albuterol Inhaler [Ventolin Hfa Inhaler] 1 - 2 puff INHALATION RT-Q6H PRN 03/06/17 Atorvastatin [Lipitor] 80 mg PO DAILY #30 tab 03/08/17 Nitroglycerin Sl Tabs [Nitrostat] 0.4 mg SUBLINGUAL Q5M PRN #25 tab 03/08/17 Valproic Acid [Depakene] 500 mg PO BID 12/10/19 amLODIPine [Norvasc] 5 mg PO DAILY 12/10/19 diphenhydrAMINE [Benadryl] 25 mg PO HS 01/15/21 Amitriptyline HCl 50 mg PO HS 04/21/21 Metoprolol Tartrate [Lopressor] 12.5 mg PO BID 04/21/21 methocarbamoL [Robaxin] 750 mg PO BID PRN 30 Days #60 tab 08/04/21 Aspirin [Adult Low Dose Aspirin EC] 81 mg PO DAILY 11/01/21 Controlled Substance Measures - Controlled Substance Measures Is patient prescribed a controlled substance at discharge?: No
[2021-11-22 09:47] VITALS: BP 111/74; PULSE 110; RESP 18; TEMP 97.7
== END ==
LOC: PNWHC3 09:07
PROVIDERS: ATTEND Specialist
DX: M51.36 Other intervertebral disc degeneration, lumbar region (principal); M54.81 Occipital neuralgia; F17.200 Nicotine dependence, unspecified, uncomplicated; Z91.013 Allergy to seafood; Z91.041 Radiographic dye allergy status; Z91.030 Bee allergy status; Z88.8 Allergy status to other drugs, medicaments and biological substances
CPT/HCPCS: 99211

== ENCOUNTER 2021-12-28 07:20 | Day surgery (SDC) | payer OTHER ==
[2021-12-23 16:47] VITALS: BMI 37.0
[2021-12-28] MEDS ORDERED: LIDOCAINE 1% (10MG/ML) FOR IV START INTRADERMA PRN (07:30)
[2021-12-28] MEDS ORDERED: LACTATED RINGERS 1,000 ML IV SCH (07:30)
[2021-12-28 07:49] VITALS: TEMP 97
[2021-12-28] MEDS ORDERED: methylPREDNISolone ACETATE 80 MG/ML 1 ML VIAL ONE (08:28)
[2021-12-28] MEDS ORDERED: fentaNYL (PF) 50 MCG/ML 2 ML AMP ONE (08:28)
[2021-12-28] MEDS ORDERED: MIDAZOLAM 2 MG/2 ML VIAL ONE (08:28)
[2021-12-28] MEDS ORDERED: ROPIVACAINE 5 MG/ML 20 ML AMPULE ONE (08:28)
--- NOTE | 2021-12-28 08:36 | P.PCN ---
Date of Procedure: 12/28/21 Procedure(s) Performed: Preoperative diagnoses= 1- Greater occipital neuralgia Postoperative diagnoses= same as preoperative diagnosis. Procedure= Bilateral Greater occipital nerve block Anesthesia= moderate sedation with Versed 2 mg and fentanyl 100 micrograms . Sedation start time 08. sedations stop time 08 Estimated blood loss=minimal. Procedure indication= the patient had a history of severe chronic neck pain ,and headache, diagnosed with occipital neuralgia exam was positive for severe tenderness over the occipital nerve bilaterally, she will be a good candidate occipital nerve block, patient failed conservative management Procedure description= the patient was seen and identified in the preoperative holding area, risks and benefits and alternative of the procedure and possible complications discussed with the patient, and he agreed with the preceding, patient signed the consent, an IV was started, and vital signs were monitored and were stable throughout the procedure, patient was placed in the sitting position or table and the neck area was prepped and draped with a sterile fashion, vital signs were closely monitored during the procedure, 25-gauge needle advanced 1 inch lateral to the occipital protuberance on the right side, at the location of the right occipital nerve , then after negative aspiration for heme and CSF and there was no paresthesia during the injection, 6 ml of Robivacaine 0.5% and 40 mg of Depo-Medrol injected after negative aspiration, the needle removed, and the entire same procedure was repeated for the left Greater occipital nerve. Patient tolerated the procedure well without any complication, The patient returned to supine position after the back was cleaned and a Band- Aid applied, the patient transported to recovery room in stable condition and he was monitored for 30 minutes before he was discharged home and then patient was reexamined before going home and patient was discharged in stable condition and patient will follow up with the pain clinic in a few weeks.
[2021-12-28] MEDS ORDERED: IV FLUID CONTINUATION 650 ML IV ONE (08:37)
[2021-12-28 09:01] VITALS: BP 125/82; PULSE 86; RESP 20
== END 2021-12-28 09:07 | disposition home or self-care (01) ==
LOC: ORPAIN 07:20
PROVIDERS: ATTEND Specialist
DX: M54.81 Occipital neuralgia (principal); G89.29 Other chronic pain; M54.2 Cervicalgia; Z91.030 Bee allergy status; Z91.041 Radiographic dye allergy status; Z91.013 Allergy to seafood; Z79.82 Long term (current) use of aspirin; Z79.899 Other long term (current) drug therapy; F17.210 Nicotine dependence, cigarettes, uncomplicated; Z80.9 Family history of malignant neoplasm, unspecified
CPT/HCPCS: 64405; J2250; J1040; J3010; J2795

== ENCOUNTER → 2022-01-13 | Outpatient (CLI) | payer OTHER ==
[2022-01-13 10:10] VITALS: BP 133/82; PULSE 83; RESP 18
--- NOTE | 2022-01-13 14:10 | P.PAINPG ---
PQRS Measure Charge Sheet Comment: A 51 yr old female with a history of severe and chronic low back pain secondary to lumbar degenerative disc diseases and lumbar spondylosis with facet arthropathy without myelopathy presents today for evaluation s/p BL KEVIN injection. Pt states she experienced 90% pain relief x 2 wks s/p procedure. Pain level is currently at 7 /10 in intensity, constant, localized in base of neck, achy/ sharp in character w shooting towards the back of the head/ scalp. Pain is provoked by hyperextension. Pain is alleviated with heat, hot shower, ice, medications (Naproxen, Robaxin), home exercise regimen, repositioning and rest. PT is too painful to participate in. Interventional pain procedures completed include BL KEVIN injection x1 Patient is currently on Naproxen, Robaxin Patient denies any side effects of the medication(s), denies excessive drowsiness or sleepiness, denies suicidal ideation and reports that the current pain medication is helping to control the pain and improve activities of daily living. Patient denies any motor or sensory deficits. Patient denies any fever or night sweats, denies any change in the bowel movements or urination. Physical Examination: -Constitutional: Cooperative. Not in acute distress . - Neurologic: Cranial nerve II to XII intact. No focal neurological deficits. - Psychatric: Alert & oriented x 3. Matching mood & appropriate affect. Judgment and insight intact. - Musculoskeletal: Cervical spine: Muscle bulk/ tone/ strength in the bilateral upper extremities normal Vertebral body tenderness to palpation over Spurling test positive Distraction test positive Facet loading test positive Thoracic spine Muscle bulk / tone/ strength in the bilateral paraspinal muscles normal Vertebral body tender to palpation over Facet loading test positive Lumbar spine: Motor bulk/ tone/ strength lower extremities , thigh and legs : 5/5 Deep tendon reflexes : Normal Knee Jerk. Normal Ankle Jerk . Vertebral body tenderness to palpation over Lumbar Facet Loading Test positive Straight Leg Raise: positive at 30 degrees right side/ left side Gaenslen's Test positive Sacral spine : Severe tenderness over the Sacroiliac joint: right side / left side Range of motion: Flexion of the lumbar spine <60 degrees Range of motion: Extension of the lumbar spine <20 degrees Gaenslen's Test positive Rene's Test positive Yoel test: positive right side / left side Thigh Thrust Test Sacral Thrust Test Assessment and plan: Chronic neck pain secondary to cervical degenerative disc disease, spondylosis with facet arthropathy without myelopathy Recommendation of PT 2 x per week x 6 wks of cervical spine re: M50.30. Recommendation of MRI without contrast of the cervical spine re: M50.30/ G44.841. Pt exhibited sufficient and satisfactory pain relief s/p procedure. Recommendation of BL G.O.N. injection #2. Risks, benefits of procedure discussed and pt verbalized understanding. Admits to anticoagulant use or medical history of diabetes. Protocol discontinuation/ continuation of medications rizwan procedure discussed. All patient questions answered MAPS reviewed and it was appropriate. I have spent less than 30 minutes on patient care today. Dr Montgomery was available by phone for the evaluation of this patient. The time was used to review the medical records including relevant urine studies and Prescription history (MAPs), review of the available imaging, evaluation and examination of the patient, coordination of care with the medical staff and if applicable referring physicians, as well as creation of the medical record PQRS Narrative: Smoking Status Current every day smoker Hx Alcohol Use (MH) No Home Medications: Ambulatory Orders Albuterol Inhaler [Ventolin Hfa Inhaler] 1 - 2 puff INHALATION RT-Q6H PRN 03/06/17 Atorvastatin [Lipitor] 80 mg PO DAILY #30 tab 03/08/17 Nitroglycerin Sl Tabs [Nitrostat] 0.4 mg SUBLINGUAL Q5M PRN #25 tab 03/08/17 Valproic Acid [Depakene] 500 mg PO BID 12/10/19 amLODIPine [Norvasc] 5 mg PO DAILY 12/10/19 diphenhydrAMINE [Benadryl] 25 mg PO HS 01/15/21 Amitriptyline HCl 50 mg PO HS 04/21/21 Metoprolol Tartrate [Lopressor] 12.5 mg PO BID 04/21/21 Aspirin [Adult Low Dose Aspirin EC] 81 mg PO DAILY 11/01/21 Naproxen 375 mg PO BID 30 Days #60 tab 01/13/22 methocarbamoL [Robaxin-750] 750 mg PO BID PRN 30 Days #60 tab 01/13/22 Controlled Substance Measures - Controlled Substance Measures Is patient prescribed a controlled substance at discharge?: No
== END ==
LOC: PNWHC3 09:21
PROVIDERS: ATTEND Specialist
DX: M47.812 Spondylosis without myelopathy or radiculopathy, cervical region (principal); M50.30 Other cervical disc degeneration, unspecified cervical region; G89.29 Other chronic pain; F17.200 Nicotine dependence, unspecified, uncomplicated; Z91.041 Radiographic dye allergy status; Z91.030 Bee allergy status; Z91.013 Allergy to seafood; Z88.8 Allergy status to other drugs, medicaments and biological substances
CPT/HCPCS: 99211

== ENCOUNTER → 2022-03-31 | Outpatient (CLI) | payer OTHER ==
[2022-03-31 07:58] VITALS: BP 124/75; PULSE 71; RESP 18; TEMP 97.9
--- NOTE | 2022-03-31 14:22 | P.PAINPG ---
PQRS Measure Charge Sheet Comment: A 51 yr old female with a history of severe and chronic LINDSAY pain secondary to occipital neuralgia and cervicogenic LINDSAY and LBP secondary to DDD, spondylosis and facet arthropathy without myelopathy presents today for evaluation s/p BL KEVIN injection. Pt states she experienced 100% pain relief x 5 wks s/p proc edure. Pain level is currently at 8/10 in intensity, constant, sharp in character w shooting/ tingling towards the BLEs. Pain is provoked by bending. Pain is alleviated with home exercise as tolerated, manual massager use, heat, ice, meds (Robaxin, ELavil), topicals, repositioning and rest. Interventional pain procedures completed include BL KEVIN, BL RFA L3-L5 (Oct 2021) Patient is currently on Robaxin, Elavil Patient denies any side effects of the medication(s), denies excessive drowsiness or sleepiness, denies suicidal ideation and reports that the current pain medication is helping to control the pain and improve activities of daily living. Patient denies any motor or sensory deficits. Patient denies any fever or night sweats, denies any change in the bowel movements or urination. Physical Examination: -Constitutional: Cooperative. Not in acute distress . - Neurologic: Cranial nerve II to XII intact. No focal neurological deficits. - Psychatric: Alert & oriented x 3. Matching mood & appropriate affect. Judgment and insight intact. - Musculoskeletal: Cervical spine: Muscle bulk/ tone/ strength in the bilateral upper extremities normal Vertebral body tenderness to palpation over Spurling test positive Distraction test positive Facet loading test positive Thoracic spine Muscle bulk / tone/ strength in the bilateral paraspinal muscles normal Vertebral body tender to palpation over Facet loading test positive Lumbar spine: Motor bulk/ tone/ strength lower extremities , thigh and legs : 5/5 Deep tendon reflexes : Normal Knee Jerk. Normal Ankle Jerk . Vertebral body tenderness to palpation over L3, L4, L5 Lumbar Facet Loading Test positive Straight Leg Raise: positive at 30 degrees right side/ left side Gaenslen's Test positive Sacral spine : Severe tenderness over the Sacroiliac joint: right side / left side Range of motion: Flexion of the lumbar spine <60 degrees Range of motion: Extension of the lumbar spine <20 degrees Gaenslen's Test positive Yoel test: positive right side / left side Thigh Thrust Test Sacral Thrust Test Imaging: MRI without contrast of the lumbar spine from 12/23/16 reviewed Assessment and plan: Chronic LINDSAY pain secondary to occipital neuralgia/ cervicogenic headache, LBP secondary to DDD, spondylosis and facet arthropathy w/o myelopathy Recommendation of x ray of the lumbar spine re: M51.36. May need additional testing if indicated. May return to this clinic for results in 2 wks. Refilled Robaxin 750mg #60 w 1RF per request. All patient questions answered I have spent less than 30 minutes on patient care today. Dr Montgomery was available by phone for the evaluation of this patient. The time was used to review the medical records including relevant urine studies and Prescription history (MAPs), review of the available imaging, evaluation and examination of the patient, coordination of care with the medical staff and if applicable referring physicians, as well as creation of the medical record - Pain Location Lower Back Non-Pharmacological Interventions: Heat, Home Exercise, Ice, Inactivity, Massage, Position/Reposition, Stretching Pharmacological Interventions: Block, PRN Medication, Topical Medication PQRS Narrative: Smoking Status Current every day smoker Hx Alcohol Use (MH) No Home Medications: Ambulatory Orders Albuterol Inhaler [Ventolin Hfa Inhaler] 1 - 2 puff INHALATION RT-Q6H PRN 03/06/17 Atorvastatin [Lipitor] 80 mg PO DAILY #30 tab 03/08/17 Nitroglycerin Sl Tabs [Nitrostat] 0.4 mg SUBLINGUAL Q5M PRN #25 tab 03/08/17 Valproic Acid [Depakene] 500 mg PO BID 12/10/19 amLODIPine [Norvasc] 5 mg PO DAILY 12/10/19 diphenhydrAMINE [Benadryl] 25 mg PO HS 01/15/21 Amitriptyline HCl 50 mg PO HS 04/21/21 Metoprolol Tartrate [Lopressor] 12.5 mg PO BID 04/21/21 Aspirin [Adult Low Dose Aspirin EC] 81 mg PO DAILY 11/01/21 methocarbamoL [Robaxin-750] 750 mg PO BID PRN 30 Days #60 tab 03/31/22 Controlled Substance Measures - Controlled Substance Measures Is patient prescribed a controlled substance at discharge?: No
== END | disposition home or self-care (01) ==
LOC: PNWHC3 07:29
PROVIDERS: ATTEND Specialist
DX: M47.896 Other spondylosis, lumbar region (principal); M51.36 Other intervertebral disc degeneration, lumbar region; M54.81 Occipital neuralgia; G44.86 Cervicogenic headache
CPT/HCPCS: 99211